=== PATIENT | male | born 1965 | race African-American/Black ===

== ENCOUNTER 2017-03-02 10:28 | Emergency (ER) | payer MEDICAID ==
[~2017-03-02] VITALS: Ht 180.3 cm; Wt 77.1 kg
[2017-03-02] MEDS ORDERED: Ranitidine 50mg/2ml Inj IV ONE (10:30)
[2017-03-02] MEDS ORDERED: Famotidine 20 MG/ 2ML VIAL IVP ONE (10:45)
[2017-03-02 12:11] VITALS: BP 124/100
[2017-03-02] MEDS ORDERED: RANITIDINE HCL150 MG ORAL (12:28)
[2017-03-02] MEDS ORDERED: ZOFRAN ODT4 MG ORAL (12:32)
[2017-03-02 13:05] VITALS: BP 134/54
--- NOTE | 2017-03-02 15:46 | Emergency Room Report ---
History of Present Illness General Chief Complaint: Nausea, Vomiting, and Diarrhea Source: Patient Present Illness HPI 51-year-old male presents ED for evaluation. Per EMS patient's complaining of abdominal pain with vomiting and diarrhea. Started this morning after eating fruits. States had multiple episodes of vomiting and diarrhea. [place] dizzy. Patient has history of diabetes. Per EMS blood pressure was low in the field. Patient states he ate a lot of fried foods last night. Pain is cramping, 5/10, nonradiating. Denies any recent antibiotic use. Denies sick contacts or recent travel. No other aggravating or relieving factors. Denies any other associated syptoms Allergies: Coded Allergies: No Known Allergies (Unverified , 03/02/17) Patient History Past Medical History: DM Past Surgical History: none Pertinent Family History: none Social History: Denies: alcohol use, drug use, smoking Immunizations: UTD Reviewed Nursing Documentation: PMH: Agreed, PSxH: Agreed Nursing Documentation-PMH Past Medical History: No History, Except For Hx Cardiac Problems: No Hx Hypertension: No Hx Pacemaker: No Hx Asthma: No Hx COPD: No Hx Diabetes: Yes Hx Cancer: No Hx Gastrointestinal Problems: No Hx Dialysis: No History Of Psychiatric Problem: No Hx Neurological Problems: No Hx Cerebrovascular Accident: No Hx Seizures: No Review of Systems All Other Systems: negative except mentioned in HPI Physical Exam Vital Signs Date Time Temp Pulse Resp B/P Pulse Ox O2 Delivery O2 Flow Rate FiO2 03/02/17 10:11 97.0 71 16 88/46 98 Room Air Sp02 EP Interpretation: reviewed, normal General Appearance: no apparent distress, alert, GCS 15, non-toxic Head: normocephalic, atraumatic Eyes: bilateral eye PERRL, bilateral eye normal inspection ENT: hearing grossly normal, normal pharynx, no angioedema, normal voice Neck: full range of motion, supple/symm/no masses Respiratory: chest non-tender, lungs clear, normal breath sounds, speaking full sentences Cardiovascular #1: regular rate, rhythm, no edema Cardiovascular #2: 2+ carotid (R), 2+ carotid (L), 2+ radial (R), 2+ radial (L) , 2+ dorsalis pedis (R), 2+ dorsalis pedis (L) Gastrointestinal: normal bowel sounds, non tender, soft, non-distended, no guarding, no rebound Rectal: deferred Genitourinary: normal inspection, no CVA tenderness Musculoskeletal: back normal, gait/station normal, normal range of motion, non- tender Neurologic: alert, oriented x3, responsive, motor strength/tone normal, sensory intact, speech normal Psychiatric: judgement/insight normal, memory normal, mood/affect normal, no suicidal/homicidal ideation Reflexes: 3+ bicep (R), 3+ bicep (L), 3+ tricep (R), 3+ tricep (L), 3+ knee (R) , 3+ knee (L) Skin: normal color, no rash, warm/dry, well hydrated Lymphatic: no adenopathy Medical Decision Making Diagnostic Impression: Primary Impression: Gastroenteritis ER Course Hospital Course 51-year-old M presents to ED with cramping abdominal pain with vomiting, diarrhea differential diagnosis: gastritis, SBO, cholecystits, gastroenteritis Clinical course Patient placed on stretcher. On restaurant inspector. After initial history and physical I ordered labs, IV fluids, Zofran and Zantac Patient refused IV access. prefers to take pills and drink water Accu-Chek in the 300s. EKG normal sinus rhythm no acute changes interpreted by me Upon reassessment, patient states symptoms have improved. tolerating PO intake. BP improved I feel this is a highly complex case requiring extensive working including EKG/ Rhythm strip, Xray/CT/US, Blood/urine lab work, repeat exams while in ED, and administration of strong opiates/narcotics for pain control, admission to hospital or close patient follow up. Diagnosis - gastroenteritis Stable and discharged to home with prescriptions for Zantac, zofran. Followup with PMD. Return to ED if symptoms recur or worsen EKG Diagnostic Results Rate: normal Rhythm: NSR ST Segments: no acute changes ASA given to the pt in ED: No Rhythm Strip Diag. Results EP Interpretation: yes Rhythm: NSR, no PVC's, no ectopy Last Vital Signs Date Time Temp Pulse Resp B/P Pulse Ox O2 Delivery O2 Flow Rate FiO2 03/02/17 13:05 97.1 63 20 134/54 98 Room Air Status: improved Disposition: HOME, SELF-CARE Condition: Stable Scripts Ondansetron Odt* (ZOFRAN ODT*) 4 Mg Tab.rapdis 4 MG ORAL Q6H Y for Nausea & Vomiting, #30 TAB 0 Refills Prov: MARILYN HASSAN M.D. 03/02/17 Ranitidine Hcl* (ZANTAC*) 150 Mg Tablet 150 MG ORAL TWICE A DAY, #30 TAB Prov: MARILYN HASSAN M.D. 03/02/17 Referrals: NOT CHOSEN [facility]/,REFERRING (PCP) Patient Instructions: Viral Gastroenteritis, Adult, [id number] MARILYN HASSAN M.D. Mar 02, 2017 15:46
--- NOTE | 2017-03-03 15:09 | Cardiology Report ---
APPROVED REPORT EKG Measurement Heart [id number] Normal sinus rhythm Possible Left atrial enlargement Borderline ECG
== END 2017-03-02 13:10 | disposition home or self-care (01) ==
LOC: EDBD 10:28 → EMR 12:00
DX: K52.9 Noninfective gastroenteritis and colitis, unspecified (principal); E11.9 Type 2 diabetes mellitus without complications
CPT/HCPCS: 93005; 99284; J2405

== ENCOUNTER 2018-05-26 01:09 | Emergency (ER) | payer MEDICAID ==
[~2018-05-26] VITALS: Ht 182.9 cm; Wt 83.9 kg
[~2018-05-26 01:09] MED LIST: RANITIDINE HCL150 MG ORAL; ZOFRAN ODT4 MG ORAL
[2018-05-26 01:15] VITALS: BP 148/103
[2018-05-26] MEDS ORDERED: CORTISPORIN EAR10 ML RIGHT EAR (01:35)
[2018-05-26 02:08] VITALS: BP 142/87
--- NOTE | 2018-05-26 02:57 | Emergency Room Report ---
History of Present Illness General Chief Complaint: Earache Source: Patient Present Illness HPI Patient is a 52-year-old male who presented after increased right-sided earache. Patient gradual onset of symptoms of the past few days. Patient had used some eardrops without any improvement. Patient prior history of diabetes. He denies any fever. He denies any ringing in his ears or hearing loss. The patient reports having symptoms for several days. He denies any fever. Allergies: Coded Allergies: No Known Allergies (Unverified , 03/02/17) Patient History Past Medical History: see triage record Reviewed Nursing Documentation: PMH: Agreed; PSxH: Agreed Nursing Documentation-PMH Past Medical History: No History, Except For Hx Cardiac Problems: No Hx Hypertension: Yes Hx Pacemaker: No Hx Asthma: No Hx COPD: No Hx Diabetes: Yes Hx Cancer: No Hx Gastrointestinal Problems: No Hx Dialysis: No Hx Neurological Problems: No Hx Cerebrovascular Accident: No Hx Seizures: No Review of Systems All Other Systems: negative except mentioned in HPI Physical Exam Vital Signs Date Time Temp Pulse Resp B/P (MAP) Pulse Ox O2 Delivery O2 Flow Rate FiO2 05/26/18 01:09 98.1 97 16 148/103 100 Room Air 98.1 General Appearance: well appearing, no apparent distress, alert, GCS 15 Head: normocephalic, atraumatic ENT: hearing grossly normal, normal voice, other - canal swelling Neck: full range of motion, supple Respiratory: no respiratory distress, speaking full sentences Cardiovascular #1: normal inspection, regular rate, rhythm Gastrointestinal: normal inspection Musculoskeletal: no calf tenderness Neurologic: normal gait Psychiatric: mood/affect normal Skin: no rash Medical Decision Making Diagnostic Impression: Primary Impression: Otitis externa ER Course Patient presented for ear pain. Differential diagnosis included was not limited to otitis media, malignant otitis externa, foreign body, cellulitis, mastoiditis, carotid dissection, myocardial infarction among others. Patient has a benign exam and does not appear to require any further imaging or laboratory testing at this time. The patient appears to have an external otitis he was given prescription for Cortisporin Otic drops. The patient was advised to have ear rechecked with his primary care physician in the next few days. Last Vital Signs Date Time Temp Pulse Resp B/P (MAP) Pulse Ox O2 Delivery O2 Flow Rate FiO2 05/26/18 02:08 98.1 72 16 142/87 100 Room Air 208.6 Status: improved Disposition: HOME, SELF-CARE Condition: Improved Scripts Neomycin/Polymyxin B Sulf/Hc* (CORTISPORIN EAR SOLUTION*) 10 Ml Solution 4 DROP RIGHT EAR QID, #10 ML 0 Refills Prov: Callum Rao MD 05/26/18 Patient Instructions: Otitis Externa Callum Rao MD May 26, 2018 02:57
== END 2018-05-26 02:15 | disposition home or self-care (01) ==
LOC: EDBD 01:09 → EMR 01:24
DX: H60.91 Unspecified otitis externa, right ear (principal); I10 Essential (primary) hypertension; E11.9 Type 2 diabetes mellitus without complications
CPT/HCPCS: 99283